=== PATIENT | male | born 1970 | race Caucasian/White ===

== ENCOUNTER 2021-08-02 00:27 | Day surgery (SDC) | payer BC, SELFPAY ==
[2021-07-24 16:44] VITALS: BMI 30.9
--- NOTE | 2021-08-02 07:00 | P.PNAN_ITS ---
Anes - Initial Pre Proc Eval Procedure: Operation Date: 08/02/21 10:30 Proposed Procedures p Screening Colonoscopy - Isra Kern MD Date/Time: 08/02/21 07:00 Surgeon: Isra Kern MD Pre Op Diagnosis: neoplasm screening Patient Data Age: 50 Gender: M Height: 1.78 m Weight: 97.6 kg Allergies Allergy/AdvReac Type Severity Reaction Status Date / Time amoxicillin Allergy Unknown Unknown Verified 08/02/21 09:19 azithromycin Allergy Unknown burning Verified 08/02/21 09:19 inside out clarithromycin Allergy Unknown burning Verified 08/02/21 09:19 inside out erythromycin base Allergy Unknown burning Verified 08/02/21 09:19 inside out Penicillins Allergy Unknown Unknown Verified 08/02/21 09:19 Home Medications Medication Instructions Recorded Confirmed Type No Home Medications 07/24/21 08/02/21 History Patient hx anesthesia problems: none Family hx anesthesia problems: none Results Review: All pre-operative results and documents have been reviewed as part of the pre-operative evaluation. [facility] Past Medical History Medical History (Updated 08/02/21 @ 07:01 by Shlomo Auguste DO) History of lymphoma Family History Family History (Updated 06/25/18 @ 09:52 by DOCTOR UNKNOWN) Sibling Family history of malignant neoplasm of brain Other Acute myocardial infarction Diabetes mellitus Family history of gout Malignant neoplasm of prostate Social History Social History (Updated 07/10/20 @ 16:30 by Araceli Armas) Smoking status: Never smoker Alcohol intake: current Drinks per week: 5 Substance use: never Substance use type: does not use Living arrangements: with family Gender identity (if verbalized by the patient): Male Spiritual care concerns: No Anes - Eval Final PreProcedure Day of Procedure 08/02/21 07:00 Patient weight: obese Heart: regular rate and rhythm Lungs: clear to auscultation and normal air movement Airway: Mallampati scale class II Neurological: alert and oriented Last oral intake: >/= 8 hours ASA classification: II Emergent: no Anesthetic plan: proceed Anesthesia type and monitoring: general GIVS and standard monitoring Results Review: All pre-operative results and documents have been reviewed as part of the pre-operative evaluation. Informed Consent: The patient's anesthetic plan and its attendant risks and benefits were discussed with the patient/family/POA. Questions were solicited and answers provided to the satisfaction of the patient/family/POA.
[2021-08-02 09:20] VITALS: BP 122/85; PULSE 64; RESP 161; TEMP 35.8; O2SAT 98; BMI 31.0
[2021-08-02] MEDS: LACTATED RINGERS 1,000 ML 150 ML IV CONT (09:31)
--- NOTE | 2021-08-02 09:50 | PM.HPGS ---
History of Present Illness History of Present Illness Consent: Risks, benefits, and alternatives have been discussed and questions answered. Patient agrees to proceed with procedure. Chief complaint: neoplasm screening Narrative: Ilya Evangelista is a 50 year old male here for screening colonoscopy, had one 10 years ago. 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 Review of Systems Constitutional: Constitutional: Denies headache(s) and Denies weakness Eyes: Eyes: Denies blurry vision ENT: Reports Normal hearing present, Denies headache(s) and Denies neck pain Cardiovascular: Cardiovascular: Denies chest pain and Denies dyspnea Respiratory: Respiratory: Denies dyspnea Gastrointestinal: Gastrointestinal: Reports no additional gastrointestinal complaints Genitourinary: Genitourinary: Denies dysuria Musculoskeletal: Musculoskeletal: Denies neck pain Integumentary/Breasts: Skin/Breast: Denies dry skin Neurologic: Reports Normal hearing present, Denies headache(s) and Denies weakness Psychiatric: Psychiatric: Denies anxiety Endocrine: Endocrine: Denies change in body appearance Hematologic/Lymphatic: Hematologic/Lymphatic: Denies easy bleeding Allergic/Immunologic: Allergic/Immunologic: Denies urticaria PMFSH Past Medical History Medical History (Updated 08/02/21 @ 09:50 by Isra Kern MD) Colon cancer screening History of lymphoma Family History Family History (Updated 06/25/18 @ 09:52 by DOCTOR UNKNOWN) Sibling Family history of malignant neoplasm of brain Other Acute myocardial infarction Diabetes mellitus Family history of gout Malignant neoplasm of prostate Social History Social History (Updated 07/10/20 @ 16:30 by Araceli Armas) Smoking status: Never smoker Alcohol intake: current Drinks per week: 5 Substance use: never Substance use type: does not use Living arrangements: with family Gender identity (if verbalized by the patient): Male Spiritual care concerns: No Meds Home Medications and Allergies Home Medications Medication Instructions Recorded Confirmed Type No Home Medications 07/24/21 08/02/21 History Allergies Allergy/AdvReac Type Severity Reaction Status Date / Time amoxicillin Allergy Unknown Unknown Verified 08/02/21 09:19 azithromycin Allergy Unknown burning Verified 08/02/21 09:19 inside out clarithromycin Allergy Unknown burning Verified 08/02/21 09:19 inside out erythromycin base Allergy Unknown burning Verified 08/02/21 09:19 inside out Penicillins Allergy Unknown Unknown Verified 08/02/21 09:19 Vital Signs Vital Signs - 24 hr 08/02/21 09:20 Temperature 96.5 F L Pulse Rate 64 Respiratory Rate 161 H Blood Pressure 122/85 Pulse Oximetry 98 Exam Const: General: comfortable and no acute distress HENMT: General nose exam: Normal nares present Eyes: General: appearance normal, both eyes and all related structures Neck: Neck: no JVD Resp: Auscultation: clear to auscultation bilaterally Cardio: Rate: regular rate Rhythm: regular rhythm GI: Inspection: non-distended GI Palp: Yes Soft to palpation Skin: General skin exam: normal color Neuro: General: gait normal Speech: normal speech Extrem: General: normal to inspection Psych: Mental Status: mental status grossly normal Assessment and Plan Assessment and plan (1) Colon cancer screening: Code(s): Z12.11 - Encounter for screening for malignant neoplasm of colon Status: Acute Assessment and Plan: colonoscopy
[2021-08-02 10:17] VITALS: BP 92/57; PULSE 73; RESP 16; O2SAT 96
[2021-08-02 10:27] VITALS: BP 96/54; PULSE 58; RESP 16; O2SAT 99
[2021-08-02 10:37] VITALS: BP 110/75; PULSE 63; RESP 20; O2SAT 95
== END 2021-08-02 10:46 | disposition home or self-care (01) ==
PROVIDERS: PCP Family Medicine; Visit Provider Internal Medicine Gastroenterology
PROC: 0DJD8ZZ Inspection of Lower Intestinal Tract, Via Natural or Artificial Opening Endoscopic (ICD-10-PCS; CPT 45378; principal; 2021-08-02 10:30)
DX: Z12.11 Encounter for screening for malignant neoplasm of colon (principal); D12.4 Benign neoplasm of descending colon; K63.5 Polyp of colon; Z85.72 Personal history of non-Hodgkin lymphomas; E66.9 Obesity, unspecified; Z68.31 Body mass index [BMI] 31.0-31.9, adult
CPT/HCPCS: 45380; 45385; 88305; J2704; J7120

== ENCOUNTER 2021-10-21 10:03 | Emergency (ER) | payer BC, SELFPAY ==
[2021-10-21 10:10] VITALS: BP 122/86; PULSE 64; RESP 16; TEMP 36.7; O2SAT 99
--- NOTE | 2021-10-21 10:11 | ED.URI ---
HPI - URI/Sore Throat General Chief Complaint: Upper Respiratory Infection Stated Complaint: Left sinus pain Time Seen by Provider: 10/21/21 10:11 Source: patient and RN notes reviewed Mode of arrival: ambulatory Limitations: no limitations History of Present Illness HPI Narrative: 51 y/o male presented for c/o left sinus pain under eye for a few days. Worse when laying on the left side. States he had Covid about 6 weeks ago and continues with lingering sinus congestion, cough, and runny nose. Denies sob, wheezing, fever/chills. Has taken advil for pain. MD elicited complaint: cough Related Data Home Medications Medication Instructions Recorded Confirmed No Home Medications 07/24/21 08/02/21 Allergies Allergy/AdvReac Type Severity Reaction Status Date / Time amoxicillin Allergy Unknown Unknown Verified 10/21/21 10:12 azithromycin Allergy Unknown burning Verified 10/21/21 10:12 inside out clarithromycin Allergy Unknown burning Verified 10/21/21 10:12 inside out erythromycin base Allergy Unknown burning Verified 10/21/21 10:12 inside out Penicillins Allergy Unknown Unknown Verified 10/21/21 10:12 Review of Systems Review of Systems: CONSTITUTIONAL: Denies malaise, chills, sweats, fever EYES: Denies visual changes, redness, or discharge ENT: Reports rhinorrhea, congestion, sinus pain, denies otalgia, sore throat CARDIOVASCULAR: Denies chest pain, palpitations, edema RESPIRATORY: Reports cough, post nasal drainage. Denies dyspnea GASTROINTESTINAL: Denies abdominal pain, nausea, vomiting, diarrhea SKIN: Denies rash or itching MUSCULOSKELETAL: Denies myalgia NEUROLOGIC: Denies headache PMFSH Past Medical History Medical History (Updated 10/21/21 @ 10:22 by Elyse Del Rio APRN) Colon cancer screening History of lymphoma Family History Family History Sibling Family history of malignant neoplasm of brain Other Acute myocardial infarction Diabetes mellitus Family history of gout Malignant neoplasm of prostate Social History Social History Smoking status: Never smoker Alcohol intake: current Drinks per week: 5 Substance use: never Substance use type: does not use Gender identity (if verbalized by the patient): Male Spiritual care concerns: No Exam Narrative: GENERAL: Well-appearing HEAD: Normocephalic EYES: conjunctivae clear ENT: Mucous membranes moist. Bilateral nares clear without drainage. TM pearly reddy with dull light reflex bilaterally; no tragal tenderness. Oropharynx erythematous without lesions or exudate, no drooling, no hoarseness, no trismus, uvula midline. NECK: Supple. No lymphadenopathy CHEST: Clear to auscultation, breath sounds equal. No wheezing, rhonchi, rales, or stridor. No respiratory distress, speaks in full sentences. HEART: Regular rate and rhythm. No murmur heard. SKIN: Warm, dry, no rash. NEURO: Alert and oriented x3. PSYCH: Normal mood and affect Course Course Emergency Course: Patient is aware of diagnosis, understands and agrees to treatment plan. Anticipatory guidance given. Patient agrees to follow-up as directed and is aware of reasons to seek care at the emergency department. Portions of this record may have been created with voice recognition software Level of Care: Express Care Visit Vital Signs Vital signs: Vital Signs Temperature 98.1 F 10/21/21 10:10 Pulse Rate 64 10/21/21 10:10 Respiratory Rate 16 10/21/21 10:10 Blood Pressure 122/86 10/21/21 10:10 Pulse Oximetry 99 10/21/21 10:10 Temperature 98.1 F 10/21/21 10:10 Pulse Rate 64 10/21/21 10:10 Respiratory Rate 16 10/21/21 10:10 Blood Pressure 122/86 10/21/21 10:10 Pulse Oximetry 99 10/21/21 10:10 reviewed MDM - URI/Sore Throat MDM Narrative Medical decision making narrative: Pt reports left sinus pain under eye for
== END 2021-10-21 10:28 | disposition home or self-care (01) ==
PROVIDERS: Emergency Provider Nurse Practitioner Family; PCP Family Medicine
DX: R51.9 Headache, unspecified (principal); Z85.72 Personal history of non-Hodgkin lymphomas
CPT/HCPCS: 99211; G0463

== ENCOUNTER 2022-10-19 10:49 | Emergency (ER) | payer BC, SELFPAY ==
--- NOTE | 2022-10-19 10:53 | ED.URI ---
HPI - URI/Sore Throat General Chief Complaint: Upper Respiratory Infection Stated Complaint: congestion Time Seen by Provider: 10/19/22 10:54 Source: patient Mode of arrival: ambulatory Limitations: no limitations History of Present Illness HPI Narrative: Ilya is a 52-year-old male patient presenting to the clinic today with complaints of cough and sinus congestion x3 weeks. He reports he is bringing up some green phlegm when coughing and blowing out green phlegm as well. He denies any known fever but has had sinus pressure. MD elicited complaint: cough, nasal congestion and sinus pain Related Data Allergies Allergy/AdvReac Type Severity Reaction Status Date / Time amoxicillin Allergy Unknown Unknown Verified 10/19/22 11:04 azithromycin Allergy Unknown burning Verified 10/19/22 11:04 inside out clarithromycin Allergy Unknown burning Verified 10/19/22 11:04 inside out erythromycin base Allergy Unknown burning Verified 10/19/22 11:04 inside out Penicillins Allergy Unknown Unknown Verified 10/19/22 11:04 Review of Systems Review of Systems: Pertinent positives per HPI. Patient denies any fever, chills, rash, headache, visual changes, dizziness, shortness of breath, chest pain, palpitations, nausea, vomiting, diarrhea, constipation, abdominal pain, or any urinary issues. PMFSH Past Medical History Medical History Colon cancer screening History of lymphoma Family History Family History Sibling Family history of malignant neoplasm of brain Other Acute myocardial infarction Diabetes mellitus Family history of gout Malignant neoplasm of prostate Social History Social History Smoking status: Never smoker Alcohol intake: current Drinks per week: 5 Substance use: never Substance use type: does not use Living arrangements: with family Occupation/Education: occupation Gender identity (if verbalized by the patient): Male Spiritual care concerns: No Comments At the time of my signature, I reviewed and agree with the nursing past medical, surgical, social, and family history. There is no relevant family history pertinent to the patient complaint. Exam Narrative: General: Well-developed, well nourished, in no apparent distress Head: Normocephalic, atraumatic Eyes: Pupils equally round and reactive to light bilaterally, EOM intact, sclera and conjunctive clear, no discharge, lids normal Ears: TMs intact and clear, ear canals clear, no drainage, grossly hearing normal. Nose: Nares patent, clear nasal discharge, moderate inflammation, maxillary sinus tenderness. Mouth: Oral pharynx without lesions or masses, good dentition, MMM. Postnasal drip Neck: Supple, trachea midline, no enlargement of anterior or posterior cervical nodes, no thyroid masses or goiter palpable. Cardio: Regular rate and rhythm, s1 and s2 normal, no murmur appreciated. Resp: Clear to auscultation bilaterally, no rhonchi, rales, wheezing or rubs Course Course Emergency Course: Portions of this record may have been created with voice recognition software. Level of Care: Express Care Visit Vital Signs Vital signs: Vital Signs Temperature 36.4 C L 10/19/22 10:58 Pulse Rate 78 10/19/22 10:58 Respiratory Rate 16 10/19/22 10:58 Blood Pressure 121/79 10/19/22 10:58 Pulse Oximetry 97 10/19/22 10:58 Temperature 36.4 C L 10/19/22 10:58 Pulse Rate 78 10/19/22 10:58 Respiratory Rate 16 10/19/22 10:58 Blood Pressure 121/79 10/19/22 10:58 Pulse Oximetry 97 10/19/22 10:58 Vital signs reviewed MDM - URI/Sore Throat MDM Narrative Medical decision making narrative: At the time of visit patient is resting comfortably on the exam table. I suspect patient has acute bacterial rhinosinusitis. Presc
[2022-10-19 10:58] VITALS: BP 121/79; PULSE 78; RESP 16; TEMP 36.4; O2SAT 97
== END 2022-10-19 11:09 | disposition home or self-care (01) ==
PROVIDERS: Emergency Provider Nurse Practitioner Family; PCP Physician Assistant
DX: J01.90 Acute sinusitis, unspecified (principal); Z85.72 Personal history of non-Hodgkin lymphomas
CPT/HCPCS: 99213; G0463

== ENCOUNTER 2022-12-09 08:48 | Emergency (ER) | payer BC, SELFPAY ==
[2022-12-09 08:55] VITALS: BP 116/86; PULSE 69; RESP 16; TEMP 36.6; O2SAT 99
[2022-12-09 08:57] VITALS: BP 116/86; PULSE 69; RESP 16; TEMP 36.6; O2SAT 99
--- NOTE | 2022-12-09 09:10 | ED.GENADULT ---
HPI - General Adult General Chief complaint: Upper Respiratory Infection Stated complaint: sore throat,congestion Time Seen by Provider: 12/09/22 09:10 Source: patient, RN notes reviewed and old records reviewed Mode of arrival: ambulatory Limitations: no limitations History of Present Illness HPI narrative: 52-YEAR-OLD MALE PRESENTS TO THE [facility] WITH COMPLAINTS OF CONGESTION AND SORE THROAT. HAD BEEN SEEN October PRESCRIBE DOXYCYCLINE AND PREDNISONE. PATIENT REPORTS THE SYMPTOMS NEVER GOT BETTER. GOT WORSE LAST THURSDAY, 3 DAYS AGO. Related Data Allergies Allergy/AdvReac Type Severity Reaction Status Date / Time amoxicillin Allergy Unknown Unknown Verified 12/09/22 08:54 azithromycin Allergy Unknown burning Verified 12/09/22 08:54 inside out clarithromycin Allergy Unknown burning Verified 12/09/22 08:54 inside out erythromycin base Allergy Unknown burning Verified 12/09/22 08:54 inside out Penicillins Allergy Unknown Unknown Verified 12/09/22 08:54 Review of Systems Review of Systems: All systems reviewed & are unremarkable except as noted in HPI and below Constitutional: Constitutional: Reports no additional constitutional complaints Eyes: Eyes: Reports no additional eye complaints ENT: Reports as per HPI, Reports sinus pressure and Reports sore throat Cardiovascular: Cardiovascular: Reports no additional cardiovascular complaints, Denies chest pain and Denies dyspnea Respiratory: Respiratory: Reports no additional respiratory complaints, Denies chest congestion, Denies cough and Denies dyspnea Gastrointestinal: Gastrointestinal: Reports no additional gastrointestinal complaints, Denies abdominal pain, Denies nausea and Denies vomiting Musculoskeletal: Musculoskeletal: Reports no additional musculoskeletal complaints Integumentary/Breasts: Skin/Breast: Reports system reviewed and no additional complaints, except as docu Neurologic: Reports system reviewed and no additional complaints, except as documented Psychiatric: Psychiatric: Reports no additional psychiatric complaints Allergic/Immunologic: Allergic/Immunologic: Reports no additional allergic/immunologic complaints [facility] Past Medical History Medical History Colon cancer screening History of lymphoma Family History Family History Sibling Family history of malignant neoplasm of brain Other Acute myocardial infarction Diabetes mellitus Family history of gout Malignant neoplasm of prostate Social History Social History Smoking status: Never smoker Alcohol intake: current Drinks per week: 5 Substance use: never Substance use type: does not use Living arrangements: with family Occupation/Education: occupation Gender identity (if verbalized by the patient): Male Spiritual care concerns: No Comments At the time of my signature, I reviewed and agree with the nursing past medical, surgical, social, and family history. There is no relevant family history pertinent to the patient complaint. Exam Const: General: cooperative, healthy appearing, comfortable, no acute distress, well developed, alert and well nourished Nutritional Appearance: well nourished Orientation/consciousness: patient oriented x3 Limitations: no limitations HENMT: Head: normal to inspection Ears: hearing grossly normal bilaterally, external ears normal and TM abnormal with fluid behind the TM ( clear) bilateral Face/Nose/Sinus: Normal external nose present, Normal nares present, Normal nasal mucous membranes and turbinates present, Nasal discharge present clear bilateral, normal facial exam and No sinus tenderness Face and sinus: normal facial exam Mouth: Yes Normal oral and palatal mucosa present, Yes lip normal and Yes moist mucous membranes Throat: posterior oropharynx
== END 2022-12-09 09:26 | disposition home or self-care (01) ==
PROVIDERS: Emergency Provider Nurse Practitioner; PCP Physician Assistant
DX: J06.9 Acute upper respiratory infection, unspecified (principal); Z85.71 Personal history of Hodgkin lymphoma
CPT/HCPCS: 99213; G0463